=== PATIENT | female | born 1990 | race Caucasian/White ===

== ENCOUNTER 2017-09-22 19:04 | Emergency (ER) | END 2017-09-22 21:16 | disposition home or self-care (01) ==

== ENCOUNTER 2019-02-22 21:02 | Emergency (ER) | payer BC ==
[~2019-02-22] VITALS: Ht 157.5 cm; Wt 62.5 kg
[~2019-02-22 21:02] MED LIST: ACET500C5 PO; AMOX500C2 PO; BENZ-6 PO; CETI10CA PO; HYDR-4011 PO; IBUP-1542 PO
[2019-02-22 21:05] VITALS: Ht 157.5 cm; Wt 62.5 kg
[2019-02-23] MEDS ORDERED: HYDROCODONE/APAP (5/325) TAB PO ONE (00:30)
[2019-02-23] MEDS ORDERED: IBUPROFEN 600 MG TAB PO ONE (00:30)
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
[2019-02-23 01:57] VITALS: BP 126/89; PULSE 86; RESP 17
== END 2019-02-23 01:57 | disposition home or self-care (01) ==
LOC: FTE 21:02
DX: M54.5 Low back pain (principal); M54.2 Cervicalgia
CPT/HCPCS: 72040; 72072; 72100; 81003; 81025